=== PATIENT | female | born 1995 | race Caucasian/White ===

== ENCOUNTER 2022-10-29 23:33 | Observation (INO) | payer MEDICAID ==
[~2022-10-29] VITALS: Ht 162.6 cm; Wt 72.6 kg
[2022-10-30] MEDS ORDERED: PNV1TABL76 PO (00:18)
[2022-10-30] MEDS ORDERED: DEXT 5%/LACTATED RINGERS 1,000 ML IV ONE (01:00)
[2022-10-30] MEDS: TERBUTALINE SULFATE 1MG/ML VIAL SUBCUT PRN ×3 (01:29→02:45)
[2022-10-30 02:48] LABS: CLARITY URINE CLEAR (CLEAR); COLOR URINE YELLOW (YELLOW); KETONES URINE 3+ (NEGATIVE); LEUKOCYTE ESTERASE URINE NEGATIVE (NEGATIVE); NITRITE URINE NEGATIVE (NEGATIVE); OCCULT BLOOD URINE NEGATIVE (NEGATIVE); PH URINE 6.5 (4.5-8.0); PROTEIN URINE NEGATIVE (NEGATIVE); SPECIFIC GRAVITY URINE 1.019 (1.005-1.030)
[2022-10-30] MEDS ORDERED: LACTATED RINGERS 1,000 ML IV SCH (03:15)
== END 2022-10-30 03:30 | disposition home or self-care (01) ==
LOC: 8 EST LDRP 23:33
PROVIDERS: ADMIT Specialist; ATTEND Specialist
DX: O26.892 Other specified pregnancy related conditions, second trimester (principal); R10.30 Lower abdominal pain, unspecified; R10.2 Pelvic and perineal pain; O62.9 Abnormality of forces of labor, unspecified; Z3A.23 23 weeks gestation of pregnancy
CPT/HCPCS: 59025; 81003; 82731; 96360; 96361; 96372; G0378; J3105; 99281

== ENCOUNTER 2024-08-19 22:44 | Emergency (ER) | payer MEDICAID, OTHER ==
[~2024-08-19] VITALS: Ht 162.6 cm; Wt 65.0 kg
[~2024-08-19 22:44] MED LIST: PNV1TABL76 PO
[2024-08-19 22:47] VITALS: O2SAT 98
[2024-08-20] MEDS ORDERED: BENZ100C86 MT
[2024-08-20 00:10] VITALS: BP 128/70; PULSE 87; RESP 18; TEMP 37.05852; O2SAT 98
== END 2024-08-20 00:13 | disposition home or self-care (01) ==
LOC: ER 22:44
DX: B34.9 Viral infection, unspecified (principal); R05.9 Cough, unspecified
CPT/HCPCS: 71046; 99283